=== PATIENT | male | born 2000 | race American Indian/Alaskan Native ===

== ENCOUNTER 2019-03-10 | Emergency (ER) | payer SELFPAY ==
[2019-03-10 00:09] VITALS: BP 151/90
--- NOTE | 2019-03-10 01:47 | Emergency Department Report ---
ED General Adult HPI - General Chief complaint: Anxiety Stated complaint: HICCUPS Time Seen by Provider: 03/10/19 01:42 Source: patient Mode of arrival: Ambulatory Limitations: No Limitations - History of Present Illness Initial comments: Patient is a 18-year-old -[place] male in no past medical history presents to the ED accompanied acute onset persistent intermittent he The Last 6 Hours. Patient states that he has been having persistent chest wall pain because of the hiccups. Patient states that he has used various home remedies from drinking cold water with no relief. Patient states that while in triage in the ED the triage nurse scared him and the hiccups resolved. Patient now states that he has no chest pain or hiccups. Patient denies shortness of breath, fever, chills, cough, nausea, vomiting, dizziness, headache, palpitations, abdominal pain, diaphoresis, or sore throat. MD Complaint: Hiccups; chest wall pain, anxiety -: Sudden, hour(s) (6) Location: chest Radiation: non-radiation Severity scale (0 -10): 0 Quality: dull Consistency: intermittent Improves with: none Associated Symptoms: denies other symptoms, chest pain. denies: confusion, cough, diaphoresis, fever/chills, headaches, loss of appetite, malaise, rash, seizure, shortness of breath, syncope, weakness Treatments Prior to Arrival: none - Related Data Previous Rx's Medication Instructions Recorded Last Taken Type Naproxen [Naprosyn] 500 mg PO Q12H PRN #20 tablet 03/10/19 Unknown Rx hydrOXYzine PAMOATE [Vistaril] 25 mg PO Q6HR PRN #30 capsule 03/10/19 Unknown Rx Allergies Allergy/AdvReac Type Severity Reaction Status Date / Time No Known Allergies Allergy Unverified 03/10/19 00:23 ED Review of Systems ROS: Stated complaint: HICCUPS Other details as noted in HPI Constitutional: denies: chills, fever Eyes: denies: eye pain, eye discharge, vision change ENT: denies: ear pain, throat pain Respiratory: denies: cough, shortness of breath, wheezing Cardiovascular: chest pain, other (Hiccups). denies: palpitations Endocrine: no symptoms reported Gastrointestinal: denies: abdominal pain, nausea, diarrhea Genitourinary: denies: urgency, dysuria Musculoskeletal: denies: back pain, joint swelling, arthralgia Skin: denies: rash, lesions Neurological: denies: headache, weakness, paresthesias Psychiatric: denies: anxiety, depression Hematological/Lymphatic: denies: easy bleeding, easy bruising ED Past Medical Hx - Past Medical History Previous Medical History?: No - Surgical History Past Surgical History?: Yes Additional Surgical History: [place] teeth extraction - Social History Smoking Status: Current Some Day Smoker - Medications Home Medications: Home Medications Medication Instructions Recorded Confirmed Last Taken Type Naproxen [Naprosyn] 500 mg PO Q12H PRN #20 tablet 03/10/19 Unknown Rx hydrOXYzine PAMOATE [Vistaril] 25 mg PO Q6HR PRN #30 capsule 03/10/19 Unknown Rx ED Physical Exam - General Limitations: No Limitations General appearance: alert, in no apparent distress - Head Head exam: Present: atraumatic, normocephalic, normal inspection - Eye Eye exam: Present: normal appearance, PERRL, EOMI. Absent: scleral icterus, conjunctival injection, nystagmus Pupils: Present: normal accommodation - ENT ENT exam: Present: normal exam, normal orophraynx, mucous membranes moist, TM's normal bilaterally, normal external ear exam - Neck Neck exam: Present: normal inspection, full ROM - Respiratory Respiratory exam: Present: normal lung sounds bilaterally. Absent: respiratory distress, wheezes, rales, rhonchi, stridor, chest wall tenderness, accessory muscle use, decreased breath sounds, prolonged expiratory - Cardiovascular Cardiovascular Exam: Present: normal rhythm, bradycardia, normal heart sounds. Absent: systolic murmur, diastolic murmur, rubs, gallop - GI/Abdominal GI/Abdominal exam: Present: soft, normal bowel sounds. Absent: tenderness, guarding, rebound, hyperactive bowel sounds - Rectal Rectal exam: Present: deferred - Extremities Exam Extremities exam: Present: normal inspection, full ROM, normal capillary refill - Back Exam Back exam: Present: normal inspection, full ROM. Absent: tenderness, CVA tenderness (L), muscle spasm, paraspinal tenderness - Neurological Exam Neurological exam: Present: alert, oriented X3, CN II-XII intact, normal gait, reflexes normal - Psychiatric Psychiatric exam: Present: normal affect, normal mood - Skin Skin exam: Present: warm, dry, intact, normal color. Absent: rash ED Course Vital Signs 08/04/19 00:07 Temperature 97.8 F Pulse Rate 56 L Respiratory 20 Rate Blood Pressure 151/90 O2 Sat by Pulse 100 Oximetry - Reevaluation(s) Reevaluation #1: 03/10/19 02:05 This is a 18-year-old male with no past medical history who presented to the ED with chest wall pain from hiccups, and recheck since resolved. Patient is alert and oriented 3 and is not in distress. The vital signs are stable. The patient has no chest pain or hiccups. Patient was discharged home and advised to follow-up with his primary care physician in 5-7 days for reevaluation or return to the ED immediately if symptoms get worse. ED Medical Decision Making - Medical Decision Making This is a 18-year-old male with no past medical history who presented to the ED with chest wall pain from hiccups, and recheck since resolved. Patient is alert and oriented 3 and is not in distress. The vital signs are stable. The patient has no chest pain or hiccups. Patient was discharged home and advised to follow-up with his primary care physician in 5-7 days for reevaluation or return to the ED immediately if symptoms get worse. - Differential Diagnosis chest wall pain, hiccups, anxiety Critical care attestation.: If time is entered above; I have spent that time in minutes in the direct care of this critically ill patient, excluding procedure time. ED Disposition Clinical Impression: Intractable hiccups, Muscle strain of anterior chest wall, Anxiety as acute re action to exceptional stress Disposition: DC-01 TO HOME OR SELFCARE Is pt being admited?: No Does the pt Need Aspirin: No Condition: Stable Instructions: Muscle Strain (ED), Hiccups (ED), Anxiety (ED) Additional Instructions: Take medications with food, drink plenty of fluids and follow-up with your primary care physician as needed. Return to the ED immediately if symptoms get worse. Prescriptions: Naproxen [Naprosyn] 500 mg PO Q12H PRN #20 tablet PRN Reason: Pain , Severe (7-10) hydrOXYzine PAMOATE [Vistaril] 25 mg PO Q6HR PRN #30 capsule PRN Reason: Anxiety Referrals: [facility] [Outside] - 3-5 Days Time of Disposition: 01:44 Print Language: [id number]
== END 2019-03-10 02:26 | disposition home or self-care (01) ==
LOC: ED
DX: S29.011A Strain of muscle and tendon of front wall of thorax, initial encounter (principal); R06.6 Hiccough; F41.9 Anxiety disorder, unspecified; K08.409 Partial loss of teeth, unspecified cause, unspecified class; F17.200 Nicotine dependence, unspecified, uncomplicated; Z79.899 Other long term (current) drug therapy; X58.XXXA Exposure to other specified factors, initial encounter; Y93.89 Activity, other specified; Y92.89 Other specified places as the place of occurrence of the external cause; Y99.8 Other external cause status
CPT/HCPCS: 99282